=== PATIENT | female | born 1955 | race Caucasian/White ===

== ENCOUNTER 2017-01-14 22:35 | Inpatient (IN) | payer BC ==
[~2017-01-14] VITALS: Ht 157.5 cm; Wt 131.2 kg
--- NOTE | ~2017-01-14 | EKG ---
PATIENT: STEVEN MARTINEZ UNIT #: [id number] Ventricular Rate: 74 BPM Atrial Rate: 74 BPM P-R Interval: 212 ms QRS Duration: 86 ms Q-T Interval: 440 ms QTC Calculation(Bezet): 488 ms P Gurdon: 23 degrees Calculated R Gurdon: -29 degrees Calculated T Gurdon: 45 degrees Diagnosis Line: Sinus rhythm with 1st degree A-V block Diagnosis Line: Voltage criteria for left ventricular hypertrophy Diagnosis Line: Baseline wander Diagnosis Line: Abnormal ECG Diagnosis Line: When compared with ECG of 12-JUN-2015 23:48, Diagnosis Line: Premature ventricular complexes are no longer Diagnosis Line: Present Diagnosis Line: Nonspecific T wave abnormality now evident in Diagnosis Line: Lateral leads Diagnosis Line: Confirmed by TASHA AQUINO MD ([id number]) on 01/15/2017 Diagnosis Line: 2:04:18 PM INTERPRETING MD: KENIA SALMON
--- NOTE | ~2017-01-14 | BMI ---
[facility] Nutrition Therapy DATE: 01/15/17 Patient: STEVEN MARTINEZ Physician: JAVIER Address: [address] Room/Bed: [address] [place] [address], Zip: [place] [address] Admit Date: 01/15/17 Date of : 59 Height: 5 2 Weight: 292 132.8 HIGH BMI NOTE: DX: 61 y/o female admitted with asthma exacerbation ANTHROPOMETRICS: Ht: 62", Wt: 284 lbs, BMI: 42 (stage III obese) DIET: Healthy heart INTERVENTION: Restricted diet, meds/fluids per MD RECOMMENDATIONS: Continue current diet to promote a gradual weight loss towards a healthy BMI range. Respectfully, Leeanne Davenport RD, LD [facility] cc: client file
--- NOTE | ~2017-01-14 | DS ---
Unit #: [id number] #: [id number] Patient: STEVEN MARTINEZ [id number] [address] [place], [place] [address] [id number] I MR#: [id number] NAME: STEVEN MARTINEZ ROOM: 337 Age: 61 Sex: F Admission Date: 01/15/2017 : 1955 Discharge Date: 01/16/2017 Attending Physician: Talon Tavarez M.D. Primary Care Physician: Cathryn Us M.D. DISCHARGE SUMMARY DISCHARGE DIAGNOSES 1. Acute asthma exacerbation. 2. Accelerated hypertension. 3. Anxiety. 4. Hypokalemia. HOSPITAL COURSE The patient is a 61-year-old woman with a history significant for asthma, hypertension, hypokalemia and anxiety, who presented to the hospital with symptoms of shortness of breath and a cough with yellowish sputum. She received nebulized bronchodilators and IV glucocorticoids during her admission. Chest x-ray demonstrated no active disease. Her hypokalemia was corrected with potassium replacement. At discharge the patient's vitals are stable. The patient is breathing comfortably. DISCHARGE MEDICATIONS 1. Albuterol nebulized q.4 h. p.r.n. 2. Symbicort 160/4.5 mcg inhaler 1 puff b.i.d. 3. Gabapentin 200 mg p.o. daily. 4. Citalopram 10 mg p.o. daily. 5. BuSpar 15 mg p.o. daily. 6. Xanax 0.5 mg p.o. daily p.r.n. anxiety. 7. Amlodipine 10 mg p.o. daily. 8. Pramipexole 2 mg p.o. at bedtime. 9. Tudorza 400 mcg inhalation daily. 10. Pravastatin 20 mg daily. 11. Lisinopril 40 mg daily. 12. Singulair 10 mg daily. 13. Triamterene hydrochlorothiazide 1 tablet p.o. daily. 14. K-Dur 20 mEq 1 tab p.o. daily. 15. Medrol Dosepak tapered dosage schedule over 6 days. FOLLOWUP Follow up with primary care physician. Dictated by... Chloe Danielle/irving TD: 01/18/2017 06:59 JOB #: [id number] Unit #: [id number] #: [id number] Patient: JUANSTEVEN DISCHARGE SUMMARY Page 1 of 1 X X DISCHARGE SUMMARY
--- NOTE | ~2017-01-14 | DS ---
Unit #: [id number] #: [id number] Patient: STEVEN MARTINEZ [id number] [address] [place], [place] [address] [id number] I MR#: [id number] NAME: STEVEN MARTINEZ ROOM: [facility] Age: 61 Sex: F Admission Date: 01/15/2017 : 1955 Discharge Date: 01/16/2017 Attending Physician: Talon Tavarez M.D. Primary Care Physician: Cathryn Us M.D. DISCHARGE SUMMARY ADDENDUM ADDITIONAL DISCHARGE MEDICATION 1. ProAir metered dose inhaler 1-2 puffs q.4 h. p.r.n. Dictated by... Talon Tavarez M.D. AVDany/gz TD: 01/18/2017 07:04 JOB #: [id number] DISCHARGE SUMMARY Page 1 of 1 X X DISCHARGE SUMMARY
--- NOTE | ~2017-01-14 | CR72 ---
[facility] A Service of [facility] & [facility] RADIOLOGY TEXT RESULTS PATIENT: STEVEN MARTINEZ LOCATION: [facility] 337-01 : [birth year] UNIT #: [id number] AGE: [address]: SANGEETAJEAN-PIERRE V SEX: F ORDER DR: [id number] [facility] [address] [place], [place] [address] [id number] I MR#: [id number] Acc #: [id number] NAME: STEVEN MARTINEZ : 1955 SEX: F STUDY DATE/TIME: 01/14/2017 23:12 UNIT: [address] ROOM: [facility] STUDY DESCRIPTION: CR Chest Single View Portable Attending Physician: Radha Holliday M.D. Ordering Physician: Ramirez Kerr M.D. Primary Care Physician: Cathryn Us M.D. MEDICAL IMAGING REPORT This report is preliminary unless electronic signature is present EXAM Portable chest INDICATION Shortness of air for the past day. PROCEDURE Frontal view chest. COMPARISON 02/03/2016. FINDINGS Upper limits of normal heart size. Pulmonary vessels are unchanged. No dense consolidation, visible pleural fluid or pneumothorax. IMPRESSION No active process. No change from 02/03/2016. Dictated by... Abdirahman Bobo M.D. THIS IS AN ELECTRONICALLY VERIFIED REPORT Abdirahman Bobo M.D. at 01/15/2017 10:02 PM JAREN/shade TD: 01/15/2017 06:41 JOB #: [id number] MEDICAL IMAGING REPORT Page 1 of 1 COPY
--- NOTE | ~2017-01-14 | HP ---
Unit #: [id number] #: [id number] Patient: STEVEN MARTINEZ [id number] [address] [place], [place] [address] [id number] I MR#: [id number] NAME: STEVEN MARTINEZ ROOM: 337 Age: 61 Sex: F Admission Date: 01/15/2017 : 1955 Attending Physician: Talon Tavarez M.D. Primary Care Physician: Cathryn Us M.D. HISTORY AND PHYSICAL CHIEF COMPLAINT Asthma exacerbation. HISTORY This pleasant, 61-year-old female with asthma, hypertension is admitted for asthma exacerbation, hypokalemia. Patient was treated with a week of steroids about 10 days ago for an asthma exacerbation. States that she was well until yesterday morning when she developed upper and lower cough productive of yellowish sputum with increasing shortness of breath and bronchospasm. She presented to this emergency department late last evening with a blood pressure of 200/106 with significant bronchospasm on exam. She was treated with 125 mg of Solu-Medrol and given bronchodilators. Due to a potassium of 2.7, she was also given potassium. Currently is still short of breath, but feeling better. In the course of her evaluation, her BNP is noted to be mildly elevated. PAST MEDICAL HISTORY 1. Asthma x28 years. Patient has been seen in the past during hospitalization by Dr. Nuñez. 2. 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 3. Essential hypertension. 4. Pedal edema. 5. Anxiety and depression. 6. Hyperlipidemia. 7. Restless leg syndrome. 8. Negative colonoscopy per report. ALLERGIES High dose codeine. HOME MEDICATIONS From what I can determine include Prilosec daily, Dyazide daily, lisinopril unknown dose, Zyrtec, Synthroid, Singulair, ProAir, Tudorza 400 mcg 1 puff daily, Mirapex 0.5 mg q.h.s.; Celexa 10 mg daily; and Pravachol 20 mg daily. FAMILY HISTORY Asthma. SOCIAL HISTORY The patient lives with her son. She works at [employer]. Is lifelong smoker. Seldom drinks alcohol. Unit #: [id number] #: [id number] Patient: STEVEN MARTINEZ REVIEW OF SYSTEMS Notable for cough, shortness of breath, wheezing, asthma, DJD, hypertension, pedal edema, anxiety, depression, hyperlipidemia, restless leg syndrome. Previous colonoscopy. All other systems are reviewed and otherwise negative. PHYSICAL EXAMINATION GENERAL APPEARANCE: Pleasant, obese, 61-year-old female currently in no acute distress. VITAL SIGNS: Temperature 98.3; pulse is 89; respirations 32; blood pressure 200/106, but now is improved; O2 saturation is 99% on room air. HEENT EXAMINATION: Eyes: PERRLA. Extraocular muscles are intact. Pharynx is benign. NECK: Supple without adenopathy or thyromegaly. CHEST: Expiratory wheeze. CARDIAC: Normal S1 and S2 without S3, S4, or murmur. ABDOMEN: Bowels sounds are present. No hepatosplenomegaly, tenderness, or masses. EXTREMITIES: Without edema. Pedal pulses are present. NEUROLOGIC EXAM: Patient is awake, alert, and oriented. Cranial nerves are intact. Equal strength throughout. DIAGNOSTIC STUDIES LABORATORY: Hematocrit 37.5, white blood count 11.7, normal platelet count. SMA-12: Glucose 116, potassium 2.7. BNP 239 of uncertain significance. Cardiac markers are negative. IMAGING: Chest x-ray: No acute disease. CARDIOVASCULAR: EKG: Normal sinus rhythm, rate 74, left axis deviation. ASSESSMENT 1. Asthma exacerbation, which may be related to infection versus changes in the weather. 2. Accelerated hypertension, mildly elevated BNP of uncertain significance. 3. Anxiety and depression. 4. History of pedal edema. PLANS 1. Steroids, albuterol, continue Tudorza, Singulair, Symbicort, and add doxycycline for how. 2. DVT and gastritis prophylaxis. 3. Replace potassium and check magnesium. 4. Obtain echo. 5. Blood pressure control. Dictated by Chloe Henao/luis armando TD: 01/15/2017 07:45 JOB #: [id number] Unit #: [id number] #: [id number] Patient: STEVEN MARTINEZ HISTORY AND PHYSICAL Page 1 of 1 X Radha Holliday MD HISTORY AND PHYSICAL
[~2017-01-14 22:35] MED LIST: ACETAMINOPHEN PO; ADVAIR 2501 DISK W/D; ADVAIR 5001 DISK W/D PO; ADVAIR INH; ALBUTEROL MININEB NEB; ALBUTEROL17 GM; ALBUTEROL17 GM INH; ALPRAZOLAM PO; BUSPAR15 M1 PO; CITALOPRAM HBR10 MG PO; COLACE PO; COMBIVENT INH14.7 GM INH; DUONEB 2.5-0.5 M3 ML; EFFEXOR XR PO; FLEXERIL10 M1 PO; FLEXERIL10 MG PO; HUMIBID L.1 TAB.SR . PO; IBUPROFEN PO; IBUPROFEN800 MG PO; K-DUR20 ME1 PO; LEVAQUIN PO; LEVAQUIN750 MG PO; MEDROL DOSEPAK4 MG DOB; MEDROL DOSEPAK4 MG PO; MEDROL PO; MILK OF MAGNESIA PO; MIRAPEX; MOBIC PO; NAPROSYN500 MG PO; NASONEX17 GM; NEURONTIN PO; NORCO 10-325 TA1 TAB PO; NORCO 7.5/325 T1 TAB PO; NORVASC10 MG PO; PRAMIPEXOLE DI0.5 MG PO; PRAVACHOL20 MG PO; PREDNISONE; PREDNISONE PO; PRINIVIL20 M1 PO; PROVERA PO; SINGULAIR PO; SPIRIVA18 MCG; SPIRIVA18 MCG INH; SPIRIVA18 MCG PO; SYMBICORT 160/4.6 G1 IH; TESSALON200 MG PO; TUDORZA PRESS400 MCG IH; VICODIN ES 7.51 EAC1 PO; VICODIN PO; VITAMIN D400 UNI2 PO; XANAX0.5 M1 PO; ZITHROMAX PO
[2017-01-14 23:16] LABS: BASOPHIL# 0.1 X10e3 (0-0.3); BASOPHIL% 0.9 % (0-2.5); EOSINOPHIL# 0.2 X10e3 (0-0.7); EOSINOPHIL% 1.3 % (0.0-7.0); HEMATOCRIT 37.5 % (35.0-45.0); HEMOGLOBIN 12.5 gm/dL (12.0-16.0); LYMPHOCYTE# 3.5 X10e3 (1.0-3.5); LYMPHOCYTE% 30.2 % (17.0-45.0); MEAN CELL VOLUME 93.9 FL (83-96); MEAN CORPUSCULAR HEMOGLOBIN 31.4 PG (28-34); MEAN CORPUSCULAR HGB CONC 33.4 g/dL (30-36); MEAN PLATELET VOLUME 10.5 FL (6.5-11.5); MONOCYTE# 0.8 X10e3 (0-1.0); MONOCYTE% 6.9 % (3.0-12.0); NEUTROPHIL# 7.1 X10e3 (1.5-7.1); NEUTROPHIL% 60.7 % (40-75); PLATELET COUNT 210 X10e3 (140-420); RED CELL DISTRIBUTION WIDTH 12.6 % (11.0-15.5); WHITE BLOOD COUNT 11.7 X10e3 (4.0-10.5)
[2017-01-14 23:18] LABS: POC - CKMB <1.0 ng/mL (0.0-7.9); POC - TROPONIN <0.05 ng/mL (<=0.05)
[2017-01-14 23:21] LABS: DIFF IND NO
[2017-01-14 23:36] LABS: ALBUMIN SERUM 3.9 g/dL (3.5-5.0); BILIRUBIN, DIRECT 0.1 mg/dL (0.0-0.2); BILIRUBIN,INDIRECT 0.7 mg/dL (0.0-0.9); BILIRUBIN,TOTAL 0.8 mg/dL (0.2-2.0); CALCIUM SERUM 9.5 mg/dL (8.4-10.2); CREATININE SERUM 0.6 mg/dL (0.6-1.4); GLOM FILT RATE Estimated 99.8 mL/min (>60); PROTEIN TOTAL SERUM 6.8 g/dL (6.0-8.3)
[2017-01-14 23:38] LABS: POTASSIUM 2.7 mmol/L (3.5-5.1)
[2017-01-15 08:44] LABS: BASOPHIL% 0.2 % (0-2.5); HEMATOCRIT 38.3 % (35.0-45.0); HEMOGLOBIN 12.9 gm/dL (12.0-16.0); LYMPHOCYTE# 0.6 X10e3 (1.0-3.5); LYMPHOCYTE% 6.6 % (17.0-45.0); MEAN CELL VOLUME 93.3 FL (83-96); MEAN CORPUSCULAR HEMOGLOBIN 31.5 PG (28-34); MEAN CORPUSCULAR HGB CONC 33.8 g/dL (30-36); MEAN PLATELET VOLUME 10.3 FL (6.5-11.5); MONOCYTE% 0.5 % (3.0-12.0); NEUTROPHIL# 8.8 X10e3 (1.5-7.1); NEUTROPHIL% 92.7 % (40-75); PLATELET COUNT 205 X10e3 (140-420); RED BLOOD COUNT 4.11 X10e (3.90-5.30); RED CELL DISTRIBUTION WIDTH 12.4 % (11.0-15.5); WHITE BLOOD COUNT 9.5 X10e3 (4.0-10.5)
[2017-01-15 08:48] LABS: DIFF IND NO
[2017-01-15 09:10] LABS: CALCIUM SERUM 8.9 mg/dL (8.4-10.2); CREATININE SERUM 0.6 mg/dL (0.6-1.4); GLOM FILT RATE Estimated 99.8 mL/min (>60); MAGNESIUM 1.8 mg/dL (1.6-3.0); POTASSIUM 3.1 mmol/L (3.5-5.1)
[2017-01-15] MEDS ORDERED: LISINOPRIL30 MG PO (13:08)
[2017-01-15] MEDS ORDERED: TRIAMTERENE-HC1 EACH PO (13:09)
[2017-01-15 13:33] LABS: THYROID STIMULATING HORMONE 0.6 uIU/ml (0.34-5.60)
[2017-01-15 13:40] LABS: FREE THYROXIN (T4) 0.89 ng/dL (0.58-1.64)
[2017-01-16 06:09] LABS: MAGNESIUM 2.4 mg/dL (1.6-3.0); POTASSIUM 3.5 mmol/L (3.5-5.1)
[2017-01-16] MEDS ORDERED: MEDROL DOSEPAK4 MG PO (16:04)
== END 2017-01-16 18:30 | disposition home or self-care (01) | DRG 202 ==
LOC: CED 22:35 → CEDOF 01-15 03:20 → CED 01-15 03:28 → CEDOF 01-15 03:28 → C3A PCU 01-15 04:17
PROVIDERS: Emergency Medicine; Internal Medicine
PROC: B24BZZZ Ultrasonography of Heart with Aorta (ICD-10-PCS; principal; 2017-01-15)
DX: J45.901 Unspecified asthma with (acute) exacerbation (principal); Z68.41 Body mass index [BMI] 40.0-44.9, adult; I10 Essential (primary) hypertension; E66.01 Morbid (severe) obesity due to excess calories; F41.9 Anxiety disorder, unspecified; F32.9 Major depressive disorder, single episode, unspecified; G25.81 Restless legs syndrome; E87.6 Hypokalemia; Z82.5 Family history of asthma and other chronic lower respiratory diseases; F17.200 Nicotine dependence, unspecified, uncomplicated
CPT/HCPCS: 36415; 71010; 80048; 80076; 82553; 83735; 83880; 84132; 84439; 84443; 84484; 85025; 93005; 93306; 94640; 94644; 94664; 94760; 96365; 96366; 99285; J0360; J1650; J2920; J2930; J3475